=== PATIENT | male | born 1965 | race Caucasian/White ===

== ENCOUNTER 2020-09-05 16:45 | Emergency (ER) | payer OTHER, SELFPAY ==
[2020-09-05 16:29] VITALS: BP 119/75; PULSE 87; RESP 16; TEMP 36.9; O2SAT 98
--- NOTE | 2020-09-05 17:02 | W.ED.GENAD ---
Discharge Plan Disposition Patient Disposition: HOME Condition: Good Discharge Details Clinical Impression: Acute left lumbar radiculopathy Primary Care Provider: Juan Reyna ED Provider: Jessica Resendez Home Meds and New Rx's Prescriptions: New dexamethasone [Decadron] 4 mg tablet 4 mg PO DAILY Qty: 7 RF: 0 gabapentin [Neurontin] 100 mg capsule 100 mg PO TID Qty: 21 RF: 0 Continued Eliquis 2.5 mg Tablet 2.5 mg PO BID RF: 0 Discharge Instructions Additional Instructions: No lifting greater than 5 pounds, light stretching Take Tylenol 650 to 1 g every 6 hours as needed for pain Follow-up with your doctor on Monday for reevaluation Take the Neurontin for your radiating pain Take Decadron daily, you received a dose here, continue tomorrow I have supplied a dose of oxycodone, this medication is addictive, do not drive for 8 hours after taking this medication, and only take it if needed You can also make you constipated so I recommend increased fiber intake while medications Should you develop changes in bowel or bladder, groin numbness, fever, or with any new or worsening complaints including pain, please return to the emergency room for evaluation Medical Decision Making Patient is ambulatory with a steady, antalgic gait at time of discharge home, he feels comfortable discharge home he has good cough follow-up Says he does report paresthesias but on clinical exam does not have any clinical evidence of cauda equina syndrome He has good strength preserved sensation Distal pulses are intact, Given the patient was on Eliquis, I did consider retroperitoneal hemorrhage, however there was no direct trauma to the area and my suspicion for spontaneous hemorrhage is quite low given the clinical picture of the patient, he is quite stable, without any bruising and vitals within normal limits After Decadron, Tylenol, and to oxycodone orally, patient is feeling very much improved He request discharge home I feel comfortable with discharge home He does not exhibit any evidence of saddle anesthesia, urinary or stool incontinence or retention, and no midline back pain, neurological exam is preserved aside from straight leg raise which is positive Patient will need MRI imaging at the discretion of his primary care physician and is discharged home in stable condition Given very low threshold to return should he have new or worsening complaints this morning. Differential Diagnosis Differential Diagnosis: Lumbar radiculopathy,cauda equina, retroperitoneal hematoma, msk back pain Medical Records Medical records reviewed: Yes I reviewed the patient's medical records. HPI This 55-year-old male presents For History of Atrial Fibrillation and CVA, on Eliquis. with recurrent left lower back pain with radiation down his leg. He states that he had a lumbar injury approximately 25 years ago and occasionally developed symptoms similar to today. He states last he strained his back while shoveling. He states the pain finally improved until today when he was lifting a pallet sterile. He states that he felt some pain and numbness in his left lower leg. He then went to try and walk downstairs and was unable to secondary to discomfort, specifically when he extends his leg. He was unable to ambulate and so called the ambulance after taking several Tylenol at 11:00. He denies any changes in bowel or bladder or groin numbness. He denies any fever or chills. He does take Eliquis but denies any direct trauma to the affected area. Describes pain as sharp and radiating. He denies history of illicit drug use. General Date/Time Provider Initiated Documentation: 09/05/20 16:46. Related Data Home Medications Medication Instructions Recorded Confirmed Eliquis 2.5 mg PO BID 09/05/20 09/05/20 dexamethasone [Decadron] 4 mg PO DAILY #7 tab 09/05/20 gabapentin [Neurontin] 100 mg PO TID #21 cap 09/05/20 Previous Rx's Medication Instructions Recorded dexamethasone [Decadron] 4 mg PO DAILY #7 tab 09/05/20 gabapentin [Neurontin] 100 mg PO TID #21 cap 09/05/20 Allergies Allergy/AdvReac Type Severity Reaction Status Date / Time No Known Allergies Allergy Unverified 09/05/20 16:44 General Stated Complaint: Orthopedic MARCY: 3 Review of Systems Gastrointestinal Gastrointestinal: Denies abdominal pain Musculoskeletal Musculoskeletal: Reports abnormal gait, Reports back pain, Denies muscle weakness and Reports numbness Neurologic Neurologic: Reports abnormal gait, Denies localized weakness and Reports numbness [facility] Medical History (Updated 09/05/20 @ 18:25 by CARMEN Dean) A-fib History of CVA (cerebrovascular accident) few years ago s/t afib per pt- no residual effects Hypertension no longer treated per pt Surgical History (Updated 09/05/20 @ 16:44 by Stacy Sam) H/O cardiac radiofrequency ablation Hx of appendectomy Social History Smoking/Tobacco Use Status: Never Smoking risk assessment performed?: Yes Alcohol Intake: never Drug use: Never Substance use type: does not use Do you feel safe at home: Yes Do you feel safe in your relationship?: Yes Exam Const General: healthy appearing Chest Chest: normal inspection of the chest Resp Effort & Inspection: normal respiratory effort Auscultation: clear to auscultation bilaterally Cardio Rate: regular rate Rhythm: regular rhythm GI Other: No flank bruising, no abdominal bruit or pulsatile mass Back/Spine/Pelvis Other: Tenderness to palpation over sciatic notch and sacroiliac joint, no midline tenderness, no paraspinal tenderness, crepitus Positive straight leg raise at 5 degrees, Strength intact and sensation intact distally DTRs 2+2 Achilles and patellar Negative Babinski Skin General skin exam: no rashes or lesions noted Neuro General: patient alert Extrem Other: No calf swelling or tenderness Course Vital Signs Vital signs: Vital Signs Temperature 36.9 C 09/05/20 16:29 Pulse 87 09/05/20 16:29 Respiratory Rate 16 09/05/20 16:29 Blood Pressure 119/75 09/05/20 16:29 Pulse Oximetry 98 09/05/20 16:29 Temperature 36.9 C 09/05/20 16:29 Temperature Source Skin 09/05/20 16:29 Pulse 87 09/05/20 16:29 Respiratory Rate 16 09/05/20 16:29 Respiratory Effort Non-Labored 09/05/20 16:46 Blood Pressure 119/75 09/05/20 16:29 Blood Pressure Position Supine 09/05/20 16:29 Pulse Oximetry 98 09/05/20 16:29 Oxygen Delivery Method Room Air 09/05/20 16:29 Oxygen Flow Rate 0 09/05/20 16:29 Pain Level 5 09/05/20 16:29 Comment 09/05/20 16:29
[2020-09-05] MEDS: Dexamethasone 10 MG/ML VIAL IVP (17:11)
[2020-09-05] MEDS: Acetaminophen 500 MG TAB 1000 MG PO (17:12)
[2020-09-05] MEDS: oxyCODONE 10 MG TAB PO (17:12)
[2020-09-05 18:45] VITALS: BP 133/84; PULSE 89; RESP 12; TEMP 36.9; O2SAT 96
[2020-09-05] MEDS: Gabapentin 100 MG CAP PO (18:49)
== END 2020-09-05 19:20 | disposition home or self-care (01) ==
PROVIDERS: Emergency Provider Physician Assistant; PCP Internal Medicine
DX: M54.16 Radiculopathy, lumbar region (principal); R20.0 Anesthesia of skin; X50.9XXA Other and unspecified overexertion or strenuous movements or postures, initial encounter; Y93.H1 Activity, digging, shoveling and raking
CPT/HCPCS: 96374; 99284; J1100